=== PATIENT | female | born 1980 | race Caucasian/White ===

== ENCOUNTER 2017-05-21 20:57 | Emergency (ER) | payer OTHER ==
[~2017-05-21 20:57] MED LIST: ALBUTEROL17 GM INH; CATAFLAM50 MG PO; FISH OIL500 M2 PO; GLUCOPHAGE850 MG PO; IBUPROFEN800 M1 PO; METFORMIN HCL1000 M2 PO; PERCOCET 5-3251 EACH PO; PRENATAL1 EACH PO; VITAMIN D35000 UNI1 PO
[2017-05-21] MEDS ORDERED: CONTRAVE ER 8-1 EACH PO (21:43)
[2017-05-21] MEDS ORDERED: VITAMIN D31000 UNI3 PO (21:43)
[2017-05-21] MEDS ORDERED: DOXYCYCLINE HY100 M5 PO (21:47)
== END 2017-05-21 21:53 ==
LOC: EDMED 20:57
DX: L72.11 Pilar cyst (principal); Z88.0 Allergy status to penicillin; Z88.2 Allergy status to sulfonamides